=== PATIENT | female | born 1995 | race Caucasian/White ===

== ENCOUNTER 2018-04-04 22:06 | Emergency (ER) | payer OTHER ==
[2018-04-04 22:36] LABS: ADD MAN DIFF? NO
[2018-04-04 22:40] LABS: WHITE BLOOD COUNT 11.7 10^3/ul (4.8-10.8)
[2018-04-04 22:40] LABS: BASOPHIL # 0.1 10^3/ul (0.0-0.1); BASOPHILS % 0.5 % (0.0-2.0); EOSINOPHILS # 0.1 10^3/ul (0.0-0.5); EOSINOPHILS % 0.4 % (0.0-7.0); HEMATOCRIT 42.1 % (37.0-47.0); HEMOGLOBIN 14.2 g/dl (12.0-16.0); LYMPHOCYTES # 4.6 10^3/ul (0.8-2.9); LYMPHOCYTES % 38.8 % (15.0-51.0); MEAN CORPUSCULAR HEMOGLOBIN 31.3 pg (29.0-33.0); MEAN CORPUSCULAR HGB CONC 33.7 g/dl (32.0-37.0); MEAN CORPUSCULAR VOLUME 92.7 fl (82.0-101.0); MEAN PLATELET VOLUME 10.2 fl (7.4-10.4); MONOCYTE # 0.8 10^3/ul (0.3-0.9); MONOCYTES % 6.8 % (0.0-11.0); NEUTROPHIL # 6.2 10^3/ul (1.6-7.5); NEUTROPHILS % 53.3 % (39.0-77.0); PLATELET COUNT 347 10^3/UL (140-415); RED BLOOD COUNT 4.54 10^6/ul (4.20-5.40)
[2018-04-04 22:58] LABS: ALANINE AMINOTRANSFERASE 47 IU/L (13-69); ALBUMIN 4.2 g/dl (3.3-4.9); ALBUMIN/GLOBULIN RATIO 1.07; ALKALINE PHOSPHATASE 110 IU/L (42-121); ANION GAP 13 (8-16); ASPARTATE AMINO TRANSFERASE 37 IU/L (15-46); BILIRUBIN,INDIRECT 0.1 mg/dl (0-1.1); BILIRUBIN,TOTAL 0.1 mg/dl (0.2-1.3); BLOOD UREA NITROGEN 10 mg/dl (7-20); CALCIUM 9.4 mg/dl (8.4-10.2); CARBON DIOXIDE 29 mmol/L (21-31); CHLORIDE 104 mmol/L (97-110); CREATININE 0.72 mg/dl (0.44-1.00); GLUCOSE 125 mg/dl (70-220); POTASSIUM 3.6 mmol/L (3.5-5.1); SODIUM 142 mmol/L (135-144); TOTAL PROTEIN 8.1 g/dl (6.1-8.1)
[2018-04-04] MEDS: SOD CHLORIDE 0.9% 1,000 ML IV (23:00)
[2018-04-04 23:10] LABS: B-TYPE NATRIURETIC PEPTIDE 32 PG/ML (0-125)
[2018-04-04 23:14] LABS: TROPONIN-I < 0.012 ng/ml (0.00-0.12)
[2018-04-05] MEDS: ADENOSINE 6 MG INJ IV ×2 (00:44→00:45)
[2018-04-05] MEDS: METOPROLOL 5 MG INJ IV (00:51)
== END 2018-04-05 01:59 | disposition home or self-care (01) ==
LOC: E/R 04-05 01:59
DX: I47.1 Supraventricular tachycardia (principal)
CPT/HCPCS: 71045; 80053; 83880; 84484; 85025; 93005; 96374; 96375; 99291-25

== ENCOUNTER 2018-05-01 21:47 | Emergency (ER) | payer OTHER ==
[2018-05-01] MEDS: SOD CHLORIDE 0.9% 1,000 ML IV (22:26)
[2018-05-01 22:30] LABS: ADD MAN DIFF? NO
[2018-05-01 22:33] LABS: WHITE BLOOD COUNT 12.7 10^3/ul (4.8-10.8)
[2018-05-01 22:33] LABS: BASOPHIL # 0.1 10^3/ul (0.0-0.1); BASOPHILS % 0.5 % (0.0-2.0); EOSINOPHILS # 0.1 10^3/ul (0.0-0.5); EOSINOPHILS % 0.5 % (0.0-7.0); HEMOGLOBIN 14.2 g/dl (12.0-16.0); LYMPHOCYTES # 4.1 10^3/ul (0.8-2.9); LYMPHOCYTES % 32.4 % (15.0-51.0); MEAN CORPUSCULAR HEMOGLOBIN 30.9 pg (29.0-33.0); MEAN CORPUSCULAR VOLUME 93.5 fl (82.0-101.0); MEAN PLATELET VOLUME 10.6 fl (7.4-10.4); MONOCYTE # 0.8 10^3/ul (0.3-0.9); MONOCYTES % 6.2 % (0.0-11.0); NEUTROPHIL # 7.6 10^3/ul (1.6-7.5); NEUTROPHILS % 60.2 % (39.0-77.0); PLATELET COUNT 342 10^3/UL (140-415)
[2018-05-01] MEDS: KETOROLAC 15 MG INJ IV (22:33)
[2018-05-01 22:51] LABS: ANION GAP 15 (8-16); BLOOD UREA NITROGEN 13 mg/dl (7-20); CALCIUM 9.8 mg/dl (8.4-10.2); CARBON DIOXIDE 27 mmol/L (21-31); CHLORIDE 107 mmol/L (97-110); CREATININE 0.69 mg/dl (0.44-1.00); GLUCOSE 102 mg/dl (70-220); SODIUM 145 mmol/L (135-144)
[2018-05-01 23:04] LABS: TROPONIN-I < 0.012 ng/ml (0.000-0.120)
[2018-05-01 23:08] LABS: FREE THYROXINE INDEX (Calc) 3.75 ug/ml (0.65-3.89); T4 (THYROXINE) 12.5 ug/dl (5.5-11.0)
== END 2018-05-01 23:33 | disposition home or self-care (01) ==
LOC: E/R 21:47
DX: R00.2 Palpitations (principal)
CPT/HCPCS: 36415; 80048; 81025; 84436; 84443; 84479; 84484; 85025; 96374; 99284-25